=== PATIENT | female | born 1965 | race Two or more races ===

== ENCOUNTER 2016-09-07 14:49 | Day surgery (SDC) | payer OTHER ==
[2016-09-06 15:51] VITALS: BMI 30.3
[~2016-09-07] VITALS: Ht 149.9 cm; Wt 68.0 kg
[2016-09-07] VITALS (22 sets, daily range): BP systolic 108–195; BP diastolic 65–94; PULSE 62–84; RESP 17–18; Ht 149.9 cm; Wt 68.0 kg
[2016-09-07] MEDS ORDERED: ATOR10TA65 PO (16:25)
[2016-09-07] MEDS ORDERED: PLAQUENIL PO (16:25)
[2016-09-07] MEDS ORDERED: MET25 PO (16:25)
[2016-09-07] MEDS ORDERED: NAPR275T83 PO (16:25)
[2016-09-07] MEDS ORDERED: FOLI-49 PO (16:25)
[2016-09-07] MEDS ORDERED: ENAL5TAB PO (16:25)
[2016-09-07] MEDS ORDERED: BUPIVACAINE 0.5% (SDV) 30 ML INJ ONE ×2 (16:53→16:55)
[2016-09-07] MEDS ORDERED: POLYMYXIN/BACITRACIN 1L IRRIG ONE ×2 (16:53→17:40)
[2016-09-07] MEDS ORDERED: FENTAnyl 50 MCG/ML VIAL ONE ×2 (16:59→17:49)
[2016-09-07] MEDS ORDERED: MIDAZOLAM 1 MG/ML 2 ML INJ ONE (17:00)
[2016-09-07] MEDS ORDERED: DIPHENHYDRAMINE 50 MG INJ IV PRN (17:30)
[2016-09-07] MEDS ORDERED: METOCLOPRAMIDE 10 MG INJ IV PRN (17:30)
[2016-09-07] MEDS ORDERED: NALOXONE (0.4 MG/ML) INJ IV PRN (17:30)
[2016-09-07] MEDS ORDERED: ONDANSETRON 4 MG INJ IV PRN (17:30)
[2016-09-07] MEDS ORDERED: FENTAnyl 50 MCG/ML VIAL IV PRN (17:30)
[2016-09-07] MEDS ORDERED: ROPIVACAINE 0.5 % 30 ML VIAL ONE (17:38)
[2016-09-07] MEDS ORDERED: BUPIVACAINE 0.25%/EPI (SDV) 30 ML INJ ONE (17:38)
[2016-09-07] MEDS ORDERED: PROPOFOL 20 ML ONE (17:45)
[2016-09-07] MEDS ORDERED: LIDOCAINE 2% (SDV) 5 ML INJ ONE (17:46)
[2016-09-07] MEDS ORDERED: CEFAZOLIN 1 GM INJ ONE (17:46)
[2016-09-07] MEDS ORDERED: ONDANSETRON 4 MG INJ ONE (17:47)
[2016-09-07] MEDS ORDERED: LABETALOL HCL 20MG INJ ONE (18:31)
[2016-09-07] MEDS ORDERED: hydrALAzine 20 MG INJ IV PRN (19:00)
[2016-09-07] MEDS ORDERED: LABETALOL HCL 20MG INJ IV PRN (19:00)
--- NOTE | 2016-09-08 10:51 | RADRPT ---
PROCEDURE: Intraoperative imaging of the left wrist with fluoroscopy. CLINICAL INDICATION: Left wrist pain. Intraoperative. TECHNIQUE: Four images of the left wrist were obtained in the operating room with an image intensi fier. No radiologist was in attendance. 42.6 seconds of fluoroscopy time was used. COMPARISON: No prior study is available for comparison. FINDINGS: Images demonstrate open reduction and internal fixation of the comminuted fracture of the distal rad ius with a plate and multiple screws. IMPRESSION: 1. Intraoperative imaging of the left wrist. RPTAT: QQ .Sean Ordaz MD, MD Date Time Electronically viewed and signed by .Sean Ordaz MD, on 09/08/2016 10:50 .R/
--- NOTE | 2016-09-08 16:01 | OPR ---
DATE OF OPERATION: 09/07/2016 PREOPERATIVE DIAGNOSIS: Comminuted displaced intra-articular left distal radius fracture. POSTOPERATIVE DIAGNOSIS: Comminuted displaced intraarticular left distal radius fracture. PROCEDURE PERFORMED: 1. Open reduction internal fixation of comminuted left distal radius intra-articular fracture using [place] standard plates. 2. Interpretation of intraoperative fluoroscopy x-ray. 3. Application of short arm fiberglass cast. ESTIMATED BLOOD LOSS: 50 mL. TOURNIQUET TIME: 40 minutes. COMPLICATIONS: None. DESCRIPTION OF PROCEDURE: Patient taken to the operating room. General anesthetic given with intub ation, 2 grams of Kefzol given for prophylaxis. Tourniquet applied on the left arm prepped and drap ed in the usual sterile manner, exsanguinated with Esmarch bandage, tourniquet inflated to 200 mmHg. A ____ incision was made lateral to the palmaris longus tendon. Subperiosteal dissection carried out. The neurovascular bundle protected. Pronator muscle was divided, and the fracture visualized. Fracture was reduced with an elevator, a [place] and traction. The fracture was stabilized with a s tandard left-sided plate from [employer] with a total of 8 locking and cortical screws. Intraoperative x-ray was used with satisfactory alignment noted of the fracture on the AP and lateral views and go od fixation with the plate and screws with satisfactory levels. Wound irrigated with antibiotic lefty ution. Hemostasis ascertained using cautery. Skin closed with emanuel. Ample cast padding was narayan lied and a short arm fiberglass cast followed. Anesthetic reversed. The patient taken to recovery in stable condition. DIAGNOSIS: ____ Dictated By: DEEPA GIL/OSCAR Conf#: [id number] DID#: [id number]
== END 2016-09-07 20:15 | disposition home or self-care (01) ==
LOC: SDS 14:49
PROVIDERS: ATTEND Specialist
DX: S52.509A Unspecified fracture of the lower end of unspecified radius, initial encounter for closed fracture (principal); S52.572A Other intraarticular fracture of lower end of left radius, initial encounter for closed fracture; X58.XXXA Exposure to other specified factors, initial encounter; Y92.89 Other specified places as the place of occurrence of the external cause; E11.9 Type 2 diabetes mellitus without complications; E78.5 Hyperlipidemia, unspecified; J45.909 Unspecified asthma, uncomplicated
CPT/HCPCS: 25608; 73110; J0360; J0690; J2250; J2405; J2795; J3010